=== PATIENT | female | born 2000 | race Caucasian/White ===

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

== ENCOUNTER 2019-01-01 14:51 | Emergency (ER) | payer SELFPAY ==
[~2019-01-01] VITALS: Ht 162.6 cm; Wt 97.7 kg
[~2019-01-01 14:51] MED LIST: CYMBALTA60 M1 PO; DESYREL 100MG100 MG PO; DULOXETINE30 MG PO; ENSKYCE 0.15 MG1 TAB PO; MIRTAZAPINE30 MG PO; PHENTERMINE H37.5 M3 PO; REMERON15 MG PO; SEPTRA DS 8001 TAB PO
[2019-01-01] MEDS ORDERED: PRENATAL 19 TA1 EACH PO (15:00)
[2019-01-01 15:57] LABS: EOS # 0.1 (0.04-0.40); HEMATOCRIT 42.7 % (35.0-45.0); HEMOGLOBIN 14.3 g/dL (12.0-15.0); LYMPH# 2.2 (1.20-3.40); MEAN CELL VOLUME 86 fl (78-95); MEAN CORPUSCULAR HEMOGLOBIN 29 pg (26-32); MEAN CORPUSCULAR HGB CONC 34 g/dL (33-37); MEAN PLATELET VOLUME 10.9 fl (7.4-10.4); MONO # 0.5 (0.10-0.60); NEU # 5.3 (1.40-6.50); PLATELET COUNT 206 K/mm3 (130-400); RED BLOOD COUNT 4.97 M/mm3 (4.10-5.30); RED CELL DISTRIBUTION WIDTH 13.3 % (11.5-14.5); WHITE BLOOD COUNT 8.1 K/mm3 (4.8-10.8)
[2019-01-01 16:08] LABS: ALBUMIN 4.1 g/dL (3.5-5.0); POTASSIUM 3.4 mmol/L (3.5-5.1)
[2019-01-01 16:10] LABS: CALCIUM 9.4 mg/dL (8.3-10.5)
[2019-01-01 16:12] LABS: URINE APPEARANCE CLOUDY; URINE BILIRUBIN NEGATIVE (NEGATIVE); URINE BLOOD TRACE (NEGATIVE); URINE COLOR YELLOW; URINE GLUCOSE NEGATIVE (NEGATIVE); URINE KETONE 1+ (NEGATIVE); URINE LEUKOCYTE ESTERASE TRACE (NEGATIVE); URINE NITRATE NEGATIVE (NEGATIVE); URINE PROTEIN(semi-quant) TRACE mg/dL (NEGATIVE); URINE UROBILINOGEN NORMAL (NORMAL)
[2019-01-01 16:13] LABS: TOTAL BILIRUBIN 0.6 mg/dL (0.2-1.2)
[2019-01-01 16:13] LABS: URINE MUCUS PRESENT (NOT PRESENT)
[2019-01-01] MEDS ORDERED: MACROBID 100 M100 MG PO (17:09)
[2019-01-01 17:23] VITALS: BP 107/43
== END 2019-01-01 17:20 | disposition home or self-care (01) ==
LOC: ED 14:51
PROVIDERS: Nurse Practitioner Primary Care
DX: N39.0 Urinary tract infection, site not specified (principal)

== ENCOUNTER 2020-08-25 15:14 | Emergency (ER) | payer BC, MEDICAID ==
[~2020-08-25 15:14] MED LIST changes: +MACROBID 100 M100 MG PO; +PRENATAL 19 TA1 EACH PO
[2020-08-25] MEDS ORDERED: SERTRALINE HYD100 MG PO (16:46)
[2020-08-25] MEDS ORDERED: DESYREL50 MG PO (16:47)
[2020-08-25] MEDS ORDERED: AMITRIPTYLINE H50 M1 PO (16:47)
[2020-08-25 17:15] LABS: BASO # 0.04 (0.02-0.10); EOS # 0.17 (0.04-0.40); EOS % 1.9 % (1.0-5.0); HEMATOCRIT 43.6 % (37.0-47.0); HEMOGLOBIN 14.3 g/dL (12.5-16.0); LYMPH# 2.76 (1.50-4.00); MEAN CELL VOLUME 85 fl (78-100); MEAN CORPUSCULAR HEMOGLOBIN 28 pg (27-31); MEAN CORPUSCULAR HGB CONC 33 g/dL (33-37); MEAN PLATELET VOLUME 10.7 fl (7.4-10.4); MONO # 0.69 (0.20-0.80); NEU # 5.34 (1.40-6.50); PLATELET COUNT 279 K/mm3 (130-400); RED BLOOD COUNT 5.16 M/mm3 (4.10-5.30); RED CELL DISTRIBUTION WIDTH 12.9 % (11.5-14.5)
[2020-08-25 17:27] LABS: ALBUMIN 4.1 g/dL (3.5-5.0)
[2020-08-25 17:28] LABS: POTASSIUM 3.8 mmol/L (3.5-5.1)
[2020-08-25 17:29] LABS: CALCIUM 8.8 mg/dL (8.3-10.5)
[2020-08-25 17:30] LABS: TOTAL PROTEIN 7.5 g/dL (6.4-8.3)
[2020-08-25 17:32] LABS: TOTAL BILIRUBIN 0.4 mg/dL (0.2-1.2)
[2020-08-25 17:49] LABS: URINE APPEARANCE CLOUDY; URINE BILIRUBIN NEGATIVE (NEGATIVE); URINE BLOOD NEGATIVE (NEGATIVE); URINE COLOR YELLOW; URINE GLUCOSE NEGATIVE (NEGATIVE); URINE KETONE NEGATIVE (NEGATIVE); URINE LEUKOCYTE ESTERASE TRACE (NEGATIVE); URINE NITRATE NEGATIVE (NEGATIVE); URINE PROTEIN(semi-quant) 1+ mg/dL (NEGATIVE); URINE UROBILINOGEN NORMAL (NORMAL)
[2020-08-25 17:50] LABS: URINE MUCUS PRESENT (NOT PRESENT)
[2020-08-25] MEDS ORDERED: MACROBID 100 M100 MG PO (18:14)
[2020-08-25 18:21] VITALS: BP 128/92
== END 2020-08-25 18:30 | disposition home or self-care (01) ==
LOC: ED 15:14
PROVIDERS: Nurse Practitioner
DX: N39.0 Urinary tract infection, site not specified (principal)
CPT/HCPCS: J1885

== ENCOUNTER → 2021-11-04 | Outpatient (CLI) | payer BC, MEDICAID ==
[~2021-11-04] MED LIST changes: +AMITRIPTYLINE H50 M1 PO; +DESYREL50 MG PO; +SERTRALINE HYD100 MG PO
[2021-11-04 07:25] LABS: BASO # 0.02 K/mm3 (0.02-0.10); EOS # 0.13 K/mm3 (0.04-0.40); EOS % 2.3 % (1.0-5.0); HEMATOCRIT 41.8 % (37.0-47.0); LYMPH# 2.01 K/mm3 (1.50-4.00); MEAN CELL VOLUME 88 fl (78-100); MEAN CORPUSCULAR HEMOGLOBIN 29 pg (27-31); MEAN CORPUSCULAR HGB CONC 34 g/dL (33-37); MEAN PLATELET VOLUME 10.6 fl (7.4-10.4); MONO # 0.38 K/mm3 (0.20-0.80); NEU # 3.08 K/mm3 (1.40-6.50); PLATELET COUNT 190 K/mm3 (130-400); RED BLOOD COUNT 4.76 M/mm3 (4.10-5.30); RED CELL DISTRIBUTION WIDTH 12.4 % (11.5-14.5); WHITE BLOOD COUNT 5.6 K/mm3 (4.8-10.8)
[2021-11-04 07:31] LABS: ALBUMIN 3.7 g/dL (3.5-5.0); POTASSIUM 3.4 mmol/L (3.5-5.1)
[2021-11-04 07:32] LABS: CALCIUM 8.5 mg/dL (8.3-10.5)
[2021-11-04 07:34] LABS: TOTAL PROTEIN 6.3 g/dL (6.4-8.3)
[2021-11-04 07:35] LABS: TOTAL BILIRUBIN 0.8 mg/dL (0.2-1.2)
== END ==
LOC: LAB 07:06
PROVIDERS: Nurse Practitioner Family
DX: R10.30 Lower abdominal pain, unspecified (principal)

== ENCOUNTER → 2021-11-10 | Outpatient (CLI) | payer BC, MEDICAID ==
[2021-11-10 11:55] LABS: BASO # 0.03 K/mm3 (0.02-0.10); EOS # 0.11 K/mm3 (0.04-0.40); EOS % 1.9 % (1.0-5.0); HEMATOCRIT 42.5 % (37.0-47.0); HEMOGLOBIN 14.1 g/dL (12.5-16.0); LYMPH# 1.75 K/mm3 (1.50-4.00); MEAN CELL VOLUME 87 fl (78-100); MEAN CORPUSCULAR HEMOGLOBIN 29 pg (27-31); MEAN CORPUSCULAR HGB CONC 33 g/dL (33-37); MEAN PLATELET VOLUME 10.8 fl (7.4-10.4); MONO # 0.36 K/mm3 (0.20-0.80); NEU # 3.51 K/mm3 (1.40-6.50); PLATELET COUNT 202 K/mm3 (130-400); RED BLOOD COUNT 4.86 M/mm3 (4.10-5.30); RED CELL DISTRIBUTION WIDTH 12.4 % (11.5-14.5); WHITE BLOOD COUNT 5.8 K/mm3 (4.8-10.8)
[2021-11-10 12:02] LABS: ALBUMIN 3.9 g/dL (3.5-5.0); POTASSIUM 3.7 mmol/L (3.5-5.1)
[2021-11-10 12:03] LABS: CALCIUM 8.7 mg/dL (8.3-10.5)
[2021-11-10 12:04] LABS: TOTAL PROTEIN 6.7 g/dL (6.4-8.3)
[2021-11-10 12:06] LABS: TOTAL BILIRUBIN 0.7 mg/dL (0.2-1.2)
== END ==
LOC: LAB 11:23
PROVIDERS: Nurse Practitioner Family
DX: R10.31 Right lower quadrant pain (principal)
CPT/HCPCS: Q9967

== ENCOUNTER → 2021-11-13 | Outpatient (CLI) | payer BC, MEDICAID | LOC: RAD 13:05 | DX: N83.201 Unspecified ovarian cyst, right side (principal) ==

== ENCOUNTER → 2021-11-23 | Outpatient (CLI) | payer BC, MEDICAID | LOC: RAD 15:48 | DX: M54.50 Low back pain, unspecified (principal); M53.3 Sacrococcygeal disorders, not elsewhere classified ==

== ENCOUNTER 2023-03-23 13:33 | Emergency (ER) | payer OTHER, MEDICAID ==
[~2023-03-23] VITALS: Ht 162.6 cm; Wt 117.3 kg
[2023-03-23] MEDS ORDERED: SPIRONOLACTONE100 MG PO (13:45)
[2023-03-23] MEDS ORDERED: EMGALITY120 MG/1 M SQ (13:45)
[2023-03-23] MEDS ORDERED: FLUOXETINE40 MG PO (13:46)
[2023-03-23] MEDS ORDERED: WEGOVY1.7 MG/0.7 SQ (13:46)
[2023-03-23] MEDS ORDERED: BUTALBITAL, ACE1 TA2 PO (13:46)
[2023-03-23] MEDS ORDERED: SUMATRIPTAN SU100 MG PO (13:46)
[2023-03-23 15:53] VITALS: BP 128/72
== END 2023-03-23 15:53 | disposition home or self-care (01) ==
LOC: ED 13:33
DX: G43.E09 Chronic migraine with aura, not intractable, without status migrainosus (principal)
CPT/HCPCS: J1885